=== PATIENT | male | born 1975 | race Two or more races ===

== ENCOUNTER 2021-04-28 07:39 | Emergency (ER) | payer OTHER ==
[~2021-04-28] VITALS: Ht 180.3 cm; Wt 102.1 kg
[2021-04-28] MEDS ORDERED: KETO10TA2 PO (11:19)
[2021-04-28] MEDS ORDERED: ZITHROMAX500 MG PO (11:19)
== END 2021-04-28 11:36 ==
LOC: ER 07:39
DX: J06.9 Acute upper respiratory infection, unspecified (principal); Z03.818 Encounter for observation for suspected exposure to other biological agents ruled out

== ENCOUNTER 2024-08-05 07:13 | Emergency (ER) | payer OTHER ==
[~2024-08-05] VITALS: Ht 180.3 cm; Wt 106.6 kg
[~2024-08-05 07:13] MED LIST: KETO10TA2 PO; ZITHROMAX500 MG PO
[2024-08-05 07:47] VITALS: BP 127/89; O2SAT 95
[2024-08-05] MEDS ORDERED: FAMOTIDINE/PF 20 MG/2 ML VIAL IV ONE (10:45)
[2024-08-05] MEDS ORDERED: DEXAMETHASONE SODIUM PHOSPHATE 4 MG/ML VIAL IM ONE (10:45)
[2024-08-05] MEDS ORDERED: ONDANSETRON HCL 2 MG/ML VIAL IV ONE (10:45)
[2024-08-05] MEDS ORDERED: FAMOTIDINE/PF 20 MG/2 ML VIAL ONE (10:47)
[2024-08-05] MEDS ORDERED: DEXAMETHASONE SODIUM PHOSPHATE 4 MG/ML VIAL ONE (10:47)
[2024-08-05] MEDS ORDERED: ONDANSETRON HCL 2 MG/ML VIAL ONE (10:47)
[2024-08-05] MEDS ORDERED: CLARITIN10 M1 PO (12:00)
[2024-08-05] MEDS ORDERED: FLONASE ALLERG9.9 ML NASAL (12:00)
[2024-08-05] MEDS ORDERED: MUCINEX DM ER1 EAC1 PO (12:00)
[2024-08-05] MEDS ORDERED: MEDROLPACK PO (12:01)
[2024-08-05] MEDS ORDERED: ZITHROMAX500 MG PO ×2 (12:01→12:03)
== END 2024-08-05 12:12 | disposition home or self-care (01) ==
LOC: ER 07:15
DX: B34.9 Viral infection, unspecified (principal); Z20.822 Contact with and (suspected) exposure to COVID-19; J06.9 Acute upper respiratory infection, unspecified
CPT/HCPCS: 36415; 96365; 96372; 99282; J1100; J2405; J3490